=== PATIENT | female | born 1980 | race Caucasian/White ===

== ENCOUNTER 2019-10-07 16:46 | Emergency (ER) | payer OTHER, SELFPAY ==
[2019-10-07 16:56] VITALS: BP 140/99; PULSE 87; RESP 16; TEMP 37.1; O2SAT 99
--- NOTE | 2019-10-07 17:10 | ED.EYEPROB ---
HPI - Eye Problem General Chief complaint: Eye Problems Stated complaint: eye stye/coughing Time Seen by Provider: 10/07/19 17:01 Source: patient and RN notes reviewed Mode of arrival: ambulatory Limitations: no limitations History of Present Illness HPI Narrative: Patient presents today complaining of redness and swelling to the right upper eyelid since last night, worse since this morning. Reports that it feels like a grit of sand underneath her eyelid when she blinks. Denies vision change or photophobia. She is also complaining of a cough that started today. She has been sleeping with her windows open and does have seasonal allergies for which she takes fexofenadine and Singulair. She has tried no interventions for the eyelid prior to arrival. Denies shortness of breath or recent fever. Denies any other sick symptoms. Patient works at a marijuana [employer] and states she, smokes a lot of weed. She does not smoke cigarettes. MD chief complaint: other (Eyelid redness and swelling, cough) Related Data Home Medications Medication Instructions Recorded Confirmed alprazolam 10/07/19 amitriptyline 10/07/19 fexofenadine mg 10/07/19 montelukast mg 10/07/19 Allergies Allergy/AdvReac Type Severity Reaction Status Date / Time No Known Allergies Allergy Verified 02/26/17 12:54 Review of Systems Review of Systems: Narrative: CONSTITUTIONAL: Denies body aches, fever, chills, or sweats. EYES: Denies visual changes, redness, or discharge.+ Redness, swelling, and pain to the right upper eyelid ENT: Denies rhinorrhea, congestion, sore throat, or otalgia. CARDIOVASCULAR: Denies chest pain, palpitations, or edema. RESPIRATORY: Denies dyspnea.+ Cough GASTROINTESTINAL: Denies abdominal pain, nausea, vomiting, or diarrhea. GENITOURINARY: Denies dysuria or hematuria. SKIN: Denies rash, itching, or wounds. MUSCULOSKELETAL: Denies back pain, joint pain, or myalgia. NEUROLOGIC: Denies headache, numbness, tingling, or weakness. PSYCH: Denies depression or anxiety. [facility] Past Medical History Medical History (Updated 10/07/19 @ 17:22 by Sheela Valdes, [facility], ) Seasonal allergies Social History Social History (Updated 05/30/20 @ 17:22 by Sheela Valdes, [employer], ) Substance use: current Substance use type: marijuana Last use: today Comments At time of signature, I have reviewed and agree with nursing past medical, surgical, social and family history unless otherwise noted. Please see nursing chart for further information. There is no relevant family history pertinent to the presenting complaint Exam Narrative: Exam Narrative: GENERAL: Well-appearing, well-nourished, and in no acute distress. HEAD: Normocephalic, atraumatic. EYES: EOMI. PERRL. No redness or drainage of the eye. Conjunctivae normal. Right upper eyelide edema and erythema with internal nodule. Tender to palpation. ENT: Mucous membranes pink and moist. Nares clear. No rhinorrhea. Throat normal. Uvula midline. NECK: Normal AROM. Supple. No lymphadenopathy. CHEST: No respiratory distress. Clear to auscultation. HEART: Regular rate and rhythm. No murmur appreciated. Normal peripheral pulses. EXTREMITIES: Normal range of motion. No edema. SKIN: Warm, dry, no rash. Capillary refill normal. Normal skin turgor. NEURO: No focal deficits. Alert and oriented x3. Gait steady. PSYCH: Normal affect. No signs of depression or anxiety. Course Vital Signs Vital signs: Vital Signs Temperature 98.7 F 10/07/19 16:56 Pulse Rate 87 10/07/19 16:56 Respiratory Rate 16 10/07/19 16:56 Blood Pressure 140/99 H 10/07/19 16:56 Pulse Oximetry 99 10/07/19 16:56 Temperature 98.7 F 10/07/19 16:56 Pulse Rate 87 10/07/19 16:56 Respiratory Rate 16 10/07/19 16:56 Blood Pressure 140/99 H 10/07/19 16:56 Pulse Oximetry 99 10/07/19 16:56 Reviewed. Pt has been instructed to follow up with her PCP regarding her elevated bloo
== END 2019-10-07 17:21 | disposition home or self-care (01) ==
PROVIDERS: Emergency Provider Nurse Practitioner; PCP Emergency Medicine
DX: H00.021 Hordeolum internum right upper eyelid (principal)
CPT/HCPCS: 99213; G0463

== ENCOUNTER → 2019-11-14 14:25 | Outpatient (CLI) | payer OTHER, SELFPAY ==
--- NOTE | ~2019-11-14 | XR_ITS ---
XR wrist LT min 3V DATE: 11/14/2019 14:42 INDICATION: Left wrist pain. Ulnar injury. TECHNIQUE: 4 views COMPARISON: None FINDINGS: No fracture or dislocation, periosteal reaction or bone destruction. IMPRESSION: Negative Reviewed, dictated and finalized at location B. IMPRESSION: Negative
== END ==
PROVIDERS: PCP Emergency Medicine; Visit Provider Emergency Medicine
DX: S69.82XA Other specified injuries of left wrist, hand and finger(s), initial encounter (principal)
CPT/HCPCS: 73110

== ENCOUNTER 2020-04-28 11:20 | Emergency (ER) | payer OTHER, SELFPAY ==
[2020-04-28 11:34] VITALS: BP 129/73; PULSE 91; RESP 16; TEMP 37.1; O2SAT 100
--- NOTE | 2020-04-28 11:47 | ED.FALL ---
HPI - Fall General Chief Complaint: Fall Stated Complaint: fell on face Time Seen by Provider: 04/28/20 11:38 Source: patient and RN notes reviewed Mode of arrival: ambulatory Limitations: no limitations History of Present Illness HPI Narrative: 39-year-old female presents with concern for left-sided facial pain, neck pain, upper back pain. Reports just prior to arrival she fell at work, hitting her face on a concrete floor, hearing a snap . Reports immediate nausea, reports clear and bloody drainage from her nose, headache. Denies any weakness, tingling, numbness in the extremity patient was driven here by her father, did not call EMS. Denies any other intervention. MD complaint: fall Related Data Home Medications Medication Instructions Recorded Confirmed amitriptyline 10/07/19 montelukast mg 10/07/19 Allergies Allergy/AdvReac Type Severity Reaction Status Date / Time No Known Allergies Allergy Verified 02/26/17 12:54 Review of Systems Review of Systems: Narrative: CONSTITUTIONAL: Denies fever. EYES: Denies visual changes ENT: Reports clear rhinorrhea, small bloody drainage from the nose CARDIOVASCULAR: Denies chest pain, palpitations, or edema. GASTROINTESTINAL: Reports nausea SKIN: Denies lacerations, abrasions MUSCULOSKELETAL: Reports left cheek pain, swelling. Reports midline cervical spine pain NEUROLOGIC: Denies numbness, weakness. Reports headache. PSYCHIATRIC: Reports anxiety All systems reviewed & are unremarkable except as noted in HPI and below PMFSH Past Medical History Medical History (Updated 10/08/19 @ 00:00 by Elie Roberts) Seasonal allergies Social History Social History (Updated 10/07/19 @ 17:22 by Sheela Valdes, [facility], ) Substance use: current Substance use type: marijuana Last use: today Comments At time of signature, agree with nursing past medical, surgical, social and family history. There is no relevant family history pertinent to the presenting complaint Exam Narrative: Exam Narrative: GENERAL: Well-appearing, well-nourished, and in no acute distress. HEAD: Normocephalic EYES: PERRLA, conjunctivae clear ENT: Nares clear no rhinorrhea or epistaxis. NECK: Supple. CHEST: No respiratory distress. Speaks in full sentences. EXTREMITIES: Normal gait, grossly normal range of motion, grossly normal strength and sensation. SKIN: Warm, dry, no rash. Left facial swelling noted NEURO: Alert and oriented x3. PSYCH: Tearful, slightly anxious Course Course Emergency Course: Patient refusing c-collar, stating that it is causing her face to hurt worse and giving her a panic attack, patient is aware of, understands and agrees to risks of not applying c-collar. Patient understands reasons for transfer to the emergency department, including limited diagnostic capability at [facility], rule out C-spine injury. EMS transfer refused. Patient agrees to proceed directly to the emergency department, being driven by her father. Portions of this record may have been created with voice recognition software Vital Signs Vital signs: Vital Signs Temperature 98.7 F 04/28/20 11:34 Pulse Rate 91 04/28/20 11:34 Respiratory Rate 16 04/28/20 11:34 Blood Pressure 129/73 04/28/20 11:34 Pulse Oximetry 100 04/28/20 11:34 Temperature 98.7 F 04/28/20 11:34 Pulse Rate 91 04/28/20 11:34 Respiratory Rate 16 04/28/20 11:34 Blood Pressure 129/73 04/28/20 11:34 Pulse Oximetry 100 04/28/20 11:34 Reviewed. Transfer Transfered to: [place] Transportation: Other (Private vehicle, ems refused) Transfer rationale: c-spine injury r/o Accepting physician: Dr. Shipley MDM - Fall MDM Narrative Medical decision making narrative: Patient is non-toxic appearing and is in no distress. Differential Diagnosis Differential diagnosis: Likely other (facial contusion, facial fracture, c-spine injury) Critical Care Time Critical Care Time Critical Care Time: No
== END 2020-04-28 11:45 | disposition short-term general hospital (02) ==
PROVIDERS: Emergency Provider Nurse Practitioner; PCP Emergency Medicine
DX: M54.2 Cervicalgia (principal)
CPT/HCPCS: 99212; G0463; L0140

== ENCOUNTER 2020-04-28 12:00 | Emergency (ER) | payer OTHER, SELFPAY ==
--- NOTE | ~2020-04-28 | CT_ITS ---
EXAMINATION: CT facial & cervical spine wo DATE: 04/28/2020 12:46 INDICATION: Head injury. Neck pain. TECHNIQUE: Computed tomography (CT) of the maxillofacial region and cervical spine was performed with out intravenous contrast. Automated exposure control and iterative reconstruction technique were empl oyed. The dose-length product was 173.76 mGy-cm. COMPARISON: CT sinuses 09/08/2013, neck CT 06/20/2013 FINDINGS: MAXILLOFACIAL CT: Bone alignment is normal. No fracture. The paranasal sinuses are clear. The orbits are normal. There is left cheek soft tissue swelling. CERVICAL SPINE CT: There is mild scarring at the lung apices. There is kyphosis of cervical spine. Vertebral body height s and intervertebral disc heights are normal. The following disc levels are specifically discussed: C2-C3: There is no uncovertebral joint osteoarthritis. There is no facet joint osteoarthritis. There is no neural foraminal stenosis. There is no central canal stenosis. C3-C4: There is no uncovertebral joint osteoarthritis. There is no facet joint osteoarthritis. There is no neural foraminal stenosis. There is no central canal stenosis. C4-C5: There is no uncovertebral joint osteoarthritis. There is no facet joint osteoarthritis. There is no neural foraminal stenosis. There is no central canal stenosis. C5-C6: There is mild right uncovertebral joint osteoarthritis. There is no facet joint osteoarthritis . There is no neural foraminal stenosis. There is mild central canal stenosis. C6-C7: There is no uncovertebral joint osteoarthritis. There is mild right facet joint osteoarthritis . There is no neural foraminal stenosis. There is mild central canal stenosis. C7-T1: There is no uncovertebral joint osteoarthritis. There is mild bilateral facet joint osteoarthr itis. There is no neural foraminal stenosis. There is no central canal stenosis. IMPRESSION: 1. No fracture. 2. Mild cervical spondylosis. Reviewed, dictated and finalized at location A. [employer]
[2020-04-28 12:04] VITALS: BP 160/94; PULSE 79; RESP 18; TEMP 36.7; O2SAT 100
--- NOTE | 2020-04-28 12:25 | PC.NURSE ---
Pt. refused c-collar at urgent care. Pt. offered c-collar upon arrival due to neck. Pt. refused stating that when they tried to do it at the urgent care and she had a panic attack. RN educated Pt. on risk of refusing c-collar with the possibly worsening a suspected injury and having serious complications from it. Pt. understands and is refusing collar at this time.
[2020-04-28] MEDS: ACETAMINOPHEN 325 MG TABLET 650 MG PO (12:34)
--- NOTE | 2020-04-28 12:44 | ED.FALL ---
HPI - Fall General Chief Complaint: Fall <Nick Cain PA-C - Last Filed: 04/28/20 13:19> Stated Complaint: Fall, facial injury <Nick Cain PA-C - Last Filed: 04/28/20 13:19> Time Seen by Provider: 04/28/20 12:30 <Nick Cain PA-C - Last Filed: 04/28/20 13:19> Source: patient <Nick Cain PA-C - Last Filed: 04/28/20 13:19> Mode of arrival: ambulatory <Nick Cain PA-C - Last Filed: 04/28/20 13:19> Limitations: no limitations <Nick Cain PA-C - Last Filed: 04/28/20 13:19> History of Present Illness HPI Narrative: Patient is a 39-year-old female who presents after facial injury that occurred just prior to arrival patient slipped and fell struck the left side of the face where she has bruising swelling moderate aching pain patient also notes mild neck pain denies syncope loss of consciousness anticoagulant use presents per private vehicle has used ice and other adjuncts with some improvement does not appear distressed or uncomfortable on arrival <Nick Cain PA-C - Last Filed: 04/28/20 13:19> Related Data Home Medications: Home Medications Medication Instructions Recorded Confirmed amitriptyline 10/07/19 montelukast mg 10/07/19 <Nick Cain PA-C - Last Filed: 04/28/20 13:19> Allergies/Adverse Reactions: Allergies Allergy/AdvReac Type Severity Reaction Status Date / Time No Known Allergies Allergy Verified 04/28/20 12:10 <Nick Cain PA-C - Last Filed: 04/28/20 13:19> Review of Systems Review of Systems: All systems reviewed & are unremarkable except as noted in HPI and below <Nick Cain PA-C - Last Filed: 04/28/20 13:19> [facility] Past Medical History Medical History: Medical History Seasonal allergies <HENOK Dawson Last Filed: 04/28/20 13:19> Social History Social History: Social History Substance use: current Substance use type: marijuana Last use: today Gender identity (if verbalized by the patient): Female <Nick Cain PA-C - Last Filed: 04/28/20 13:19> Exam Narrative: Exam Narrative: GENERAL: Well-appearing, well-nourished, and in no acute distress. HEAD: Normocephalic, bruising swelling tenderness over the left cheek EYES: PERRLA and EOMI. ENT: Nares clear, no rhinorrhea or epistaxis. Mucous membranes moist. NECK: Supple. No adenopathy or masses. CHEST: Clear to auscultation. No respiratory distress. No wheezes rales or rhonchi HEART: Regular rate and rhythm. No murmur heard. Normal peripheral pulses. EXTREMITIES: Normal range of motion. No edema. Tenderness of the paraspinal midline cervical spine SKIN: Warm, dry, no rash. NEURO: No focal deficits. Alert and oriented x3. Cranial nerves II through XII grossly intact PSYCH: Normal mood and affect. <Nick Cain PA-C - Last Filed: 04/28/20 13:19> Course Course Emergency Course: Patient in room no distress aware of case findings treatment plan diagnosis agreeing to follow-up as instructed felt appropriate for outpatient reevaluation given the negative CT imaging <Nick Cain PA-C - Last Filed: 04/28/20 13:19> Vital Signs Vital signs: Vital Signs Temperature 98.1 F 04/28/20 12:04 Pulse Rate 79 04/28/20 12:04 Respiratory Rate 18 04/28/20 12:04 Blood Pressure 160/94 H 04/28/20 12:04 Pulse Oximetry 100 04/28/20 12:04 Temperature 98.1 F 04/28/20 12:04 Pulse Rate 79 04/28/20 12:04 Respiratory Rate 18 04/28/20 12:04 Blood Pressure 160/94 H 04/28/20 12:04 Pulse Oximetry 100 04/28/20 12:04 <Nick Cain PA-C - Last Filed: 04/28/20 13:19> Vital Signs Temperature 98.1 F 04/28/20 12:04 Pulse Rate 79 04/28/20 12:04 Respiratory Rate 18 04/28/20 12:04 Blood Pressure 160/94 H 04/28/20 12:04 Pulse Oxi
== END 2020-04-28 13:26 | disposition home or self-care (01) ==
PROVIDERS: Emergency Provider General Practice; PCP Emergency Medicine
DX: S00.83XA Contusion of other part of head, initial encounter (principal); S16.1XXA Strain of muscle, fascia and tendon at neck level, initial encounter; W01.0XXA Fall on same level from slipping, tripping and stumbling without subsequent striking against object, initial encounter
CPT/HCPCS: 70486; 72125; 99284; A9270

== ENCOUNTER 2022-03-10 09:06 | Emergency (ER) | payer OTHER, SELFPAY ==
[2022-03-10 09:24] VITALS: BP 132/84; PULSE 110; RESP 16; TEMP 37.1; O2SAT 100
--- NOTE | 2022-03-10 09:55 | ED.URI ---
HPI - URI/Sore Throat General Chief Complaint: Upper Respiratory Infection Stated Complaint: cough/fever Time Seen by Provider: 03/10/22 09:55 Source: patient, RN notes reviewed and old records reviewed Mode of arrival: ambulatory Limitations: no limitations History of Present Illness HPI Narrative: 41-year-old female presents to the [facility] with complaints of cough and fever since yesterday. Also reports being ?up all night with body aches? has taken severe Tylenol cold and flu last night. Requesting a work note for today and tomorrow. Related Data Home Medications Medication Instructions Recorded Confirmed montelukast 10 mg tablet 10 mg PO DAILY 10/07/19 03/10/22 fexofenadine 180 mg tablet 180 mg PO DAILY 03/10/22 03/10/22 (Allergy Relief (fexofenadine)) Allergies Allergy/AdvReac Type Severity Reaction Status Date / Time diazepam Allergy Mild Itching Verified 03/10/22 10:03 Review of Systems Review of Systems: All systems reviewed & are unremarkable except as noted in HPI and below Constitutional: Constitutional: Reports as per HPI, Reports chills, Reports fatigue and Denies fever(s) Eyes: Eyes: Reports no additional eye complaints ENT: Reports as per HPI Cardiovascular: Cardiovascular: Reports no additional cardiovascular complaints Respiratory: Respiratory: Reports as per HPI and Reports cough Gastrointestinal: Gastrointestinal: Reports no additional gastrointestinal complaints Musculoskeletal: Musculoskeletal: Reports no additional musculoskeletal complaints Integumentary/Breasts: Skin/Breast: Reports system reviewed and no additional complaints, except as docu Neurologic: Reports system reviewed and no additional complaints, except as documented Psychiatric: Psychiatric: Reports no additional psychiatric complaints Allergic/Immunologic: Allergic/Immunologic: Reports no additional allergic/immunologic complaints [facility] Past Medical History Medical History Bipolar 1 disorder Bulging disc Epilepsy Herpes History of recent ear, nose, and throat (ENT) procedure DNS Seasonal allergies Seizures Surgical History Surgical History Delivery by section (~06/28/10) Primary - bradycardia; mild PIH H/O gynecological procedure paragard insertion 08/22/2010 Paragard removal 12/18/2014 H/O laparoscopy - endometriosis Hx of tonsillectomy Family History Family History Mother Heart disease Hodgkin lymphoma Malignant neoplasm of liver Hypertension Father Hyperlipidemia Social History Social History Smoking status: Never smoker Alcohol intake: never Substance use: current Substance use type: marijuana Last use: today Additional occupation/education comments: [employer] Gender identity (if verbalized by the patient): Female Sexual Orientation (if Verbalized by the Patient): Straight or Heterosexual Comments At the time of my signature, I reviewed and agree with the nursing past medical, surgical, social, and family history. There is no relevant family history pertinent to the patient complaint. Exam Const: General: healthy appearing, no acute distress, alert and well nourished Nutritional Appearance: well nourished Orientation/consciousness: patient oriented x3 Limitations: no limitations HENMT: Head: normal to inspection Ears: external ears normal, TM's normal bilaterally and EAC's normal Face/Nose/Sinus: Normal external nose present and Normal nares present Face and sinus: normal facial exam Mouth: Yes Normal oral and palatal mucosa present, Yes lip normal and Yes moist mucous membranes Throat: posterior oropharynx normal and uvula midline Eyes: General: appearance normal, both eyes and all related structures Conjunctivae:
== END 2022-03-10 10:29 | disposition home or self-care (01) ==
PROVIDERS: Emergency Provider Nurse Practitioner; PCP Family Medicine
DX: J40 Bronchitis, not specified as acute or chronic (principal)
CPT/HCPCS: 87804; 99213; G0463

== ENCOUNTER 2023-03-04 09:52 | Emergency (ER) | payer BC, SELFPAY ==
--- NOTE | 2023-03-04 09:55 | ED.URI ---
HPI - URI/Sore Throat General Chief Complaint: Upper Respiratory Infection Stated Complaint: Sinus/Cough Time Seen by Provider: 03/04/23 11:07 Source: patient and RN notes reviewed Mode of arrival: ambulatory Limitations: no limitations History of Present Illness HPI Narrative: 42-year-old female presents with concern for 4 day history of cough, sinus congestion, sinus pressure. Reports trying many all for the counter and home remedies without relief. Reports her son had similar symptoms. She reports chills, sweats, body aches. She reports she took a COVID test that was negative MD elicited complaint: cough Related Data Home Medications Medication Instructions Recorded Confirmed montelukast 10 mg tablet 10 mg PO DAILY 10/07/19 03/04/23 fexofenadine 180 mg tablet 180 mg PO DAILY 03/10/22 03/04/23 (Allergy Relief (fexofenadine)) alprazolam 0.25 mg tablet 0.25 mg PO DAILY 01/13/23 03/04/23 Allergies Allergy/AdvReac Type Severity Reaction Status Date / Time No Known Allergies Allergy Verified 03/04/23 10:26 Review of Systems Review of Systems: CONSTITUTIONAL: Reports malaise, chills, sweats EYES: Denies visual changes, redness, or discharge. ENT: Reports rhinorrhea, congestion, sinus pain CARDIOVASCULAR: Denies chest pain, palpitations, or edema. RESPIRATORY: Reports cough and chest congestion. Denies dyspnea. GASTROINTESTINAL: Denies abdominal pain, nausea, vomiting, diarrhea SKIN: Denies rash or itching. MUSCULOSKELETAL: Reports myalgia. NEUROLOGIC: Reports headache. All systems reviewed & are unremarkable except as noted in HPI and below PMFSH Past Medical History Medical History Bipolar 1 disorder Bulging disc Epilepsy Herpes History of recent ear, nose, and throat (ENT) procedure DNS Seasonal allergies Seizures Surgical History Surgical History Delivery by section (~06/28/10) Primary - bradycardia; mild PIH H/O gynecological procedure paragard insertion 08/22/2010 Paragard removal 12/18/2014 H/O laparoscopy - endometriosis Hx of tonsillectomy Family History Family History Mother Heart disease Hodgkin lymphoma Malignant neoplasm of liver Hypertension Father Hyperlipidemia Social History Social History (Updated 01/13/23 @ 09:30 by Keely Perez MA) Smoking status: Never smoker Alcohol intake: never Substance use: current Substance use type: marijuana Last use: today Lack of Transportation: No Lack of Food: Never True Current Housing: I Have Housing Concerned About Future Housing: No Difficulty Paying Gas/Electric Bills: No Difficulty Paying for Meds: No Currently Unemployed: No Education: High School Diploma/GED Difficulty w/ Childcare or Family Care: No Living arrangements: alone Occupation/Education: occupation Additional occupation/education comments: [employer] Gender identity (if verbalized by the patient): Female Sexual Orientation (if Verbalized by the Patient): Straight or Heterosexual Comments At time of signature, agree with nursing past medical, surgical, social and family history. There is no relevant family history pertinent to the presenting complaint Exam Narrative: GENERAL: Well-appearing, well-nourished, and in no acute distress. HEAD: Normocephalic EYES: PERRLA, conjunctivae clear ENT: Nares clear, turbinates edematous and erythematous, clear discharge. Mucous membranes moist. TM pearly solis with dull light reflex bilaterally; no tragal tenderness. Oropharynx not erythematous without lesions. Tonsils not enlarged and without exudate, no drooling, no hoarseness, no trismus, uvula midline. NECK: Supple. No lymphadenopathy CHEST: Clear to auscultation, breath sounds equal. No wheezing, rhonchi, rales, or stridor. No respiratory distress, spea
[2023-03-04 10:07] VITALS: BP 136/84; PULSE 70; RESP 16; TEMP 37.1; O2SAT 100
== END 2023-03-04 11:16 | disposition home or self-care (01) ==
PROVIDERS: Emergency Provider Nurse Practitioner; PCP Family Medicine
DX: J40 Bronchitis, not specified as acute or chronic (principal); F12.90 Cannabis use, unspecified, uncomplicated
CPT/HCPCS: 99213; G0463

== ENCOUNTER 2024-07-09 14:46 | Emergency (ER) | payer BC, SELFPAY ==
[2024-07-09 14:56] VITALS: BP 152/91; PULSE 88; RESP 14; TEMP 37.2; O2SAT 100
--- NOTE | 2024-07-09 14:58 | ED.EAR ---
HPI - Ear Problem General Chief complaint: Upper Respiratory Infection Stated complaint: Right Ear Irritation Time Seen by Provider: 07/09/24 14:59 Source: patient, RN notes reviewed and old records reviewed Mode of arrival: ambulatory Limitations: no limitations History of Present Illness HPI Narrative: Patient presents with complaints of right ear pain and right sinus congestion. She reports that she was in her normal state of health until about 3 weeks ago. States she came down with influenza, recovered, but has had sinus pain and pressure since. Ear pain began a few days ago and is worsening. She denies any injury or trauma. She has been taking multiple vitamins to try to help her health status. No other concerns or complaints Related Data Home Medications ?Medication ?Instructions ?Recorded ?Confirmed ?Last Taken ?Type montelukast 10 mg tablet 10 mg PO DAILY 10/07/19 03/04/23 Unknown History alprazolam 0.25 mg tablet 0.25 mg PO DAILY 01/13/23 03/04/23 Unknown History atorvastatin 10 mg tablet mg 07/09/24 Unknown History Allergies Allergy/AdvReac Type Severity Reaction Status Date / Time No Known Allergies Allergy Verified 07/09/24 14:48 Review of Systems Review of Systems: All systems reviewed & are unremarkable except as noted in HPI and below Constitutional: Constitutional: Reports no additional constitutional complaints ENT: Reports system reviewed and no additional complaints, except as documented, Reports otalgia, Reports nasal congestion, Reports nasal discharge, Reports sinus pain and Reports sinus pressure Cardiovascular: Cardiovascular: Reports no additional cardiovascular complaints Respiratory: Respiratory: Reports no additional respiratory complaints Gastrointestinal: Gastrointestinal: Reports no additional gastrointestinal complaints PMFSH Past Medical History Medical History History of recent ear, nose, and throat (ENT) procedure DNS Bulging disc Bipolar 1 disorder Epilepsy Seizures Herpes Seasonal allergies Surgical History Surgical History H/O gynecological procedure paragard insertion 08/22/2010 Paragard removal 12/18/2014 H/O laparoscopy - endometriosis Hx of tonsillectomy Delivery by section (~06/28/10) Primary - bradycardia; mild PIH Family History Family History Mother Heart disease Hodgkin lymphoma Malignant neoplasm of liver Hypertension Father Hyperlipidemia Social History Social History Smoking status: Never smoker Alcohol intake: never Substance use: current Substance use type: marijuana Last use: today Lack of Transportation: No Lack of Food: Never True Current Housing: I Have Housing Concerned About Future Housing: No Difficulty Paying Gas/Electric Bills: No Difficulty Paying for Meds: No Currently Unemployed: No Education: High School Diploma/GED Difficulty w/ Childcare or Family Care: No Living arrangements: alone Occupation/Education: occupation Additional occupation/education comments: [employer] Gender identity (if verbalized by the patient): Female Sexual Orientation (if Verbalized by the Patient): Straight or Heterosexual Comments At the time of my signature, I reviewed and agree with the nursing past medical, surgical, social, and family history. There is no relevant family history pertinent to the patient complaint. Exam Const: General: cooperative, no acute distress, alert and awake Orientation/consciousness: oriented to person, oriented to place and oriented to time HENMT: Head: normal to inspection Ears: TM abnormal bulging on the right, erythematous on the right and with loss of landmarks on the right Resp: Effort & Inspection: normal respiratory effort and able to speak in complete sentences Auscultation: clear to auscultation bilaterally, no crackles, no rales, no rhonchi and no wheezes Cardio: Palpation: normal PMI Rate: regular rate Rhythm: regular rhythm Heart sounds: S1 normal heart sound present and S2 normal heart sound present Neuro: General: oriented to person, oriented to place and oriented to time Cranial nerves: Yes CN's II-XII intact bilaterally Psych: Appearance: grossly normal Thought process: Normal thought process present Insight: Good insight present (Psych) Judgement: Good judgement present (Psych) Course Course Emergency Course: History and exam consistent with otitis media. Start p.o. antibiotic therapy, prednisone burst. Patient nontoxic appearing, stable for discharge home. Level of Care: Express Care Visit Vital Signs Vital signs: Vital Signs Temperature 98.9 F 07/09/24 14:56 Pulse Rate 88 07/09/24 14:56 Respiratory Rate 14 07/09/24 14:56 Blood Pressure 152/91 H 07/09/24 14:56 Pulse Oximetry 100 07/09/24 14:56 Oxygen Delivery Room Air 07/09/24 14:56 Temperature 98.9 F 07/09/24 14:56 Pulse Rate 88 07/09/24 14:56 Respiratory Rate 14 07/09/24 14:56 Blood Pressure 152/91 H 07/09/24 14:56 Pulse Oximetry 100 07/09/24 14:56 Oxygen Delivery Room Air 07/09/24 14:56 Reviewed Medical Decision Making MDM Narrative Medical decision making narrative: History and exam consistent with otitis media. Start p.o. antibiotic therapy, prednisone burst. Patient nontoxic appearing, stable for discharge home Discharge instructions reviewed with patient, as well as provided in writing per nursing staff. The instructions also include specific and strict return/GO TO THE ER as well as f/u information. All questions have been answered, and the patient deny any further questions with discharge and discharge plan. Some parts of this dictation were generated by voice recognition software and may contain typographical and/or grammatical inaccuracies. Differential Diagnosis Differential Diagnosis: Otalgia, sinusitis, viral illness Medical Records Medical records reviewed: Yes I reviewed the external patient's medical records. Vital Signs Vital Signs: Vital Signs Temperature 98.9 F 07/09/24 14:56 Pulse Rate 88 07/09/24 14:56 Respiratory Rate 14 07/09/24 14:56 Blood Pressure 152/91 H 07/09/24 14:56 Pulse Oximetry 100 07/09/24 14:56 Oxygen Delivery Room Air 07/09/24 14:56 Temperature 98.9 F 07/09/24 14:56 Pulse Rate 88 07/09/24 14:56 Respiratory Rate 14 07/09/24 14:56 Blood Pressure 152/91 H 07/09/24 14:56 Pulse Oximetry 100 07/09/24 14:56 Oxygen Delivery Room Air 07/09/24 14:56 reviewed Lab Data Lab results reviewed: Yes I reviewed the patient's lab results. Lab results narrative: reviewed Discharge Plan Discharge Clinical Impression: Elevated blood pressure reading Otitis media Qualifiers: Otitis media type: suppurative Chronicity: acute Laterality: right Recurrence: not specified as recurrent Spontaneous tympanic membrane rupture: without spontaneous rupture Qualified Code(s): H66.001 - Acute suppurative otitis media without spontaneous rupture of ear drum, right ear Patient Disposition: Home, Self-Care Condition: Stable Instructions: Antibiotic Form, Earache (ED) Additional Instructions: Take medications as prescribed. Follow with primary care provider. Emergency department for new or worse symptoms Patient Language: Ukrainian Prescriptions: New amoxicillin-pot clavulanate 875-125 mg tablet 1 tablet PO Q12H Qty: 20 0RF prednisone 50 mg tablet 50 mg PO DAILY Qty: 5 0RF No Action atorvastatin 10 mg tablet montelukast 10 mg tablet 10 mg PO DAILY alprazolam 0.25 mg tablet 0.25 mg PO DAILY Follow-up/Referrals: Cookie,MD Pato [Primary Care Provider] - 2 Weeks
== END 2024-07-09 15:15 | disposition home or self-care (01) ==
PROVIDERS: Emergency Provider Nurse Practitioner Family; PCP Family Medicine
DX: R03.0 Elevated blood-pressure reading, without diagnosis of hypertension (principal); H66.001 Acute suppurative otitis media without spontaneous rupture of ear drum, right ear; F12.90 Cannabis use, unspecified, uncomplicated
CPT/HCPCS: 99213; G0463

== ENCOUNTER 2025-02-20 16:40 | Outpatient (CLI) | payer OTHER, SELFPAY ==
--- OUTSIDE RECORDS SUMMARY | 2025-02-20 17:38 | XMS_ITS | Clinical Summary ---
Author Organization [facility] [address] [facility] Address [address] [place] [address] Care Team Providers Care Plumber Assistant Name Role Phone Pato Gary MD Primary Care Provider [phone] Coco Jones MD Unavailable [phone] Allergies Active Allergy Reactions Criticality Noted Date Comments Doxepin Rash Medium 08/19/2020 Medications cetirizine (ZyrTEC) 10 mg tabletIndicatio ns:Seasonal allergies Take 1 tablet (10 mg total) by mouth daily as needed for allergies 90 tablet 3 5 10/13/19 26 Active fluticasone propionate (FLONASE) 50 mcg/actuation nasal sprayIndication s:Seasonal allergies Administer 2 sprays into each nostril daily 1 each 5 5 04/10/20 25 Active ALPRAZolam (XANAX) 0.25 mg tabletIndicatio ns:TAWNY (generalized anxiety disorder) Take 1 tablet (0.25 mg total) by mouth 2 (two) times a day as needed for anxiety 60 tablet 5 5 04/10/20 25 Active Active Problems Problem Noted Date Diagnosed Date Chronic right shoulder pain 05/12/2023 Panic disorder without agoraphobia 09/04/2022 Menorrhagia 05/05/2021 TAWNY (generalized anxiety disorder) 08/19/2020 Moderate episode of recurrent major depressive d isorder 08/19/2020 Irritable bowel syndrome with diarrhea Seasonal allergies 08/19/2020 Immunizations Immunization Administration Dates Next Due Influenza, Quadrivalent, Spl it, Preservative Free, Intramuscular 03/10/2018 Influenza, Unspecified 03/14/2024(Deferr ed: Patient decision),03/17/2023(Deferred: Patient decision),01/08/2022(Deferred: Patient decision) Surgical History Surgery Date Site/Laterality Comments SECTION NOSE SURGERY deviated septum SHOULDER SURGERY bone spur removal Medical History Medical History Date Comments Allergic Anxiety Panic disorder Depression IBS (irritable bowel syndrome) Arthritis 2017 Menstrual problem 1998 Right shoulder pain Family History Medical History Relation Name Comments Alcohol abuse Father Tony Mumper Allergy (severe) Father Tony Mumper Arthritis Father Tony Mumper Heart disease Father Tony Mumper Hyperlipidemia Father Tony Mumper Hypertension Father Tony Mumper Rashes / Skin problems Father Tony Mumper Skin cancer Father Tony Mumper psoriatic arthritis Father Tony Mumper Arthritis Maternal Grandmother Ludy Doss Blindness Maternal Grandmother Ludy Doss Cancer Maternal Grandmother Ludy Doss Crohn's disease Maternal Grandmother Ludy Doss Hearing loss Maternal Grandmother Ludy Doss Vision loss Maternal Grandmother Ludy Doss Alcohol abuse Mother Blanca Mumper Cancer Mother Blanca Mumper Depression Mother Blanca Mumper Heart disease Mother Blanca Mumper Hodgkin's lymphoma Mother Blanca Mumper Liver cancer Mother Blanca Mumper Cancer Paternal Grandmother Salima Colon cancer Paternal Grandmother Salima No Known Problems Son Relation Name Status Comments Father Tony Mumper Alive Maternal Grandfather Maternal Grandmother Ludy Doss Mother Blanca Mumper Paternal Grandfather Alive Paternal Grandmother Aslima Son Alive Social History Tobacco Use Types Packs/Day Years Used Date Smoking Tobacco: Former Cigarettes 0.5 15 0 05/10/1994 - 2009 Smokeless Tobacco: Never Tobacco Cessation:Counseling Given: Not Answered Comments:I quit many years ago AUDIT-C Answer Date Recorded Q1: How often do you have a drink containing alc ohol? Monthly or less 10/12/2024 Q2: How many drinks containi ng alcohol do you have on a typical day when you are drinking? 1 or 2 10/12/2024 Q3: How often do you have si x or more drinks on one occasion? Less than monthly 10/12/2024 PHQ-2 Answer Date Recorded PHQ-2 Total Score (If total score is 3 or more points, staff should administer the PHQ-9) 0 07/12/2024 PHQ-9 Answer Date Recorded PHQ-9 Total Score 0 07/12/2024 Personal Safety Answer Date Recorded Getting School Help Needed Denies 04/27 Comments No Sex and Gender Information Value Date Recorded Sex Assigned at Not on file Legal Sex Female 5:35 AM WEAVE DEFECT CHARTING CLERK Gender Identity Not on file Sexual Orientation Not on file Obstetrics History Para Term AB IAB SAB Ectopic Multiple Livin g Live Births 1 1 1 Date Outcome GA Total Labor Labor/2nd/3rd Weight Sex Type Anes PTL Adilene A1 A5 Name Clin Term Last Filed Vital Signs Vital Sign Reading Time Taken Comments Blood Pressure 120/74 10/12/2024 2:14 PM CDT Pulse 62 10/12/2024 2:14 PM CDT Temperature 36.6 C (97.8 F) 10/12/2024 2:14 PM CDT Respiratory Rate 18 10/12/2024 2:14 PM CDT Oxygen Saturation 98% 10/12/2024 2:14 PM CDT Inhaled Oxygen Concentration - - Weight 65.7 kg (144 lb 12.8 oz) 10/12/2024 2:14 PM CDT Height 165.1 cm (5' 5) 10/12/2024 2:14 PM CDT Body Mass Index 24.1 10/12/2024 2:14 PM CDT Plan of Treatment Health Maintenance Due Date Last Done Comments Cervical Cancer Screening 1981 DTaP/Tdap/Td Vaccine (1 - Tdap) 1992 Varicella Vaccines (1 of 2 - 13+ 2-dose series) 1994 Hepatitis B Screening 10/10/1999 HPV Vaccines (1 - 3-dose SCDM series) 2008 Breast Cancer Screening-Mammogram 07/06/2023 07/06/2022, 01/06/2021 Influenza Vaccine (#1) 2025 03/10/2018 Depression Screening 07/12/2025 07/12/2024, 07/12/2024, 12/09/2022, Additional history exists Regular Well Visit/Exam 18-64 07/12/2025 07/12/2024, 03/17/2023 Hepatitis C Screening Completed 08/02/2023 Pneumococcal vaccine <65 Aged Out No longer eligible based on patient's age to complete this topic Procedures Procedure Name Priority Date/Time Associated Diagnosis Comments HEPATITIS PANEL, ACUTE Routine 08/02/2023 5:58 PM CDT Hepatomegaly SCREENING MAMMOGRAM BILATERAL W JUAN Schedule Routine, Read Routine (OP Routine) 07/06/2022 11:32 AM WEAVE DEFECT CHARTING CLERK Screening mammogram, encounter for from Last 3 Months or Most Recently Relevant to Health Maintenance Results * Hepatitis panel, acute Blood (08/02/2023 5:58 PM CDT) Hep A IgM Nonreactive Nonreactive Comment: Interpretive Data: If Hep A IgM Ab is reported as Equivocal, a new sample should be drawn in two weeks for testing. Current interpretive data was last revised on 19. Hep B core IgM Nonreactive Nonreactive ANDREW Comment: Interpretive Data If HepB Core IgM Ab is reported as Equivocal, a new sample should be drawn in two weeks for testing. Current interpretive data was last revised on 19. Hep C Ab Nonreactive Nonreactive ANDREW Comment: Antibodies to HCV not detected. Does NOT exclude the possibility of recent exposure to HCV. Current interpretive data was last revised on 22 Interpretive Data Nonreactive: Antibodies to HCV not detected. Does NOT exclude the possibility of recent exposure to HCV. Equivocal: Equivocal for HCV antibodies. Supplemental molecular testing will be automatically performed to determine infection status in accordance with current CDC screening recommendations. Reactive: Positive for HCV antibodies. This may represent current or past HCV infection. Supplemental molecular testing will be automatically performed to determine current infection status in accordance with current CDC screening recommendations. Interpretive data was last revised on 2019. HepBsAg Nonreactive Nonreactive ANDREW Blood 08/02/2023 5:58 PM CDT 08/02/2023 8:11 PM CDT us Pato Gary MD LAB MICROBIOLOGY - GENERAL ORDER ROMIE Final Result ANDREW [address] [facility] Department [place] [address] * Screening Mammogram Bilateral W Juan (07/06/2022 11:32 AM WEAVE DEFECT CHARTING CLERK) Anatomical Region Laterality Modality Breast Bilateral Mammography Impressions 07/06/2022 11:38 AM WEAVE DEFECT CHARTING CLERK BI-RADS ATLAS category (overall): 1 - Negative There is no mammographic evidence of malignancy. A 1 year screening mammogram is recommended. The patient has been or will be contacted. We recommend annual screening mammography for women at average risk of breast cancer beginning at age 40, based on guidelines of the [place] [employer] (ACR Practice Parameter for the Performance of Screening and Diagnostic Mammography) and [place] [employer]. For women with and elevated risk of breast cancer, please refer to the ACR Practice Parameter for specific screening recommendations. The patient will be entered into a reminder system with a target due date of 1 year for her next screening exam. Narrative 07/06/2022 11:38 AM WEAVE DEFECT CHARTING CLERK Screening Mammogram Bilateral W Juan: 07/06/22 The study was acquired using full field digital technology and interpreted from soft copy. 2D digital mammographic views, as well as 3D digital tomosynthesis were performed in the CC and MLO projections. CLINICAL: Screening mammogram, encounter for. No relevant medical history has been documented for this patient. No known family history of breast cancer. COMPARISONS: 01/06/2021 Diagnostic Mammogram Bilateral W Juan 01/06/2021 US Breast Left Limited BREAST TISSUE: The breasts are heterogeneously dense, which may obscure small masses. FINDINGS: No suspicious masses, suspicious calcifications, or other suspicious findings are seen within either breast. There has been no suspicious change. us Self Screening Mammogram IMG MAMMO PROCEDURES Fi nal Result from Last 3 Months or Most Recently Relevant to Health Maintenance Insurance [facility] Care Teams Plumber Assistant Relationship Specialty Start Date End Date Pato Gary MD [address] [place] [address] PCP - General Family Medicine 12/09/22 Coco Jones MD [address] [place] [address] Consulting Physician Gastroenterology 09/28/23
--- OUTSIDE RECORDS SUMMARY | 2025-02-20 17:38 | XMS_ITS | Clinical Summary ---
Author Organization [facility] Address [address] [place] [address] Care Team Providers Care Bending Press Operator Name Role Phone Unavailable Primary Care Provider Unavailabl e Source Comments [facility],non-owned Affiliates and Associated Physician Practices is amultiple site organization consisting of ambulatory clinics and hospital sitesin [place], [place], [place] and [place]. This disclosure is being madepursuant to the Care Everywhere program and may not contain all information available regarding this patient. Last updated 18.[facility] Social History Tobacco Use Types Packs/Day Years Used Date Smoking Tobacco: Some Days Alcohol Use Standard Drinks/Week Comments Yes 0 (1 standard drink = 0.6 oz pur e alcohol) Comments Unknown Sex and Gender Information Value Date Recorded Sex Assigned at Not on file Legal Sex Female 6:53 PM TELEPHONIC NURSE Gender Identity Not on file Sexual Orientation Not on file Plan of Treatment Health Maintenance Due Date Last Done Comments LIPID TESTING 1981 MAMMOGRAM 1981 HIV SCREENING 1996 HEPATITIS C SCREENING 10/05/1999 DTAP/TDAP/TD VACCINES (1 - Tdap) 2000 HEPATITIS B VACCINE (1 of 3 - 19+ 3-dose series) 2000 HPV VACCINE (1 - 3-dose SCDM series) 2008 DEPRESSION SCREENING 05/10/2024 COVID-19 VACCINE (1 - 2023-2 5 season) 2025 INFLUENZA VACCINE (#1) 2025 ZOSTER VACCINE (1 of 2) 10/10/2031 HIB VACCINE Aged Out No longer eligi ble based on patient's age to complete this topic MENINGOCOCCAL (Group B) VACC INE SHARED DECISION-MAKING Aged Out No longer eligibl e based on patient's age to complete this topic MENINGOCOCCAL GROUPS A/C/Y/W VACCINE Aged Out No longer eligible b ased on patient's age to complete this topic PNEUMOCOCCAL VACCINE Aged Out No long er eligible based on patient's age to complete this topic
--- OUTSIDE RECORDS SUMMARY | 2025-02-20 17:38 | XMS_ITS | Clinical Summary ---
Author Organization [facility] Address [address] [place] [address] Care Team Providers Care Track Repair Worker Name Role Phone Ady Rosario MD Primary Care Provider Allergies No known active allergies Medications magnesium oxide 400 (241.3 Mg) MG tabletIndicatio ns:400-800 daily Take 400 mg by mouth daily. Indications: 400-800 daily Active omega-3 fatty acid 500 MG capsule Take 1,200 mg by mouth daily. Active Misc Natural Products (TURMERIC CURCUMIN) capsule Take 1 capsule by mouth daily. Active wheat dextrin Tab tablet Take 1 tablet by mouth daily. Active polycarbophil (FIBER) 625 MG tablet Take 500 mg by mouth daily. Active Social History Tobacco Use Types Packs/Day Years Used Date Smoking Tobacco: Former Cigarettes Q uit: 02/07/2010 Smokeless Tobacco: Never Comments No Sex and Gender Information Value Date Recorded Sex Assigned at Not on file Legal Sex Female 7:30 PM CDT Gender Identity Not on file Sexual Orientation Not on file Last Filed Vital Signs Vital Sign Reading Time Taken Comments Blood Pressure 120/75 02/07/2019 2:45 PM CDT Pulse 81 02/07/2019 2:45 PM CDT Temperature 36.4 C (97.5 F) 02/07/2019 2:35 PM CDT Respiratory Rate 18 02/07/2019 2:45 PM CDT Oxygen Saturation 99% 02/07/2019 2:45 PM CDT Inhaled Oxygen Concentration - - Weight 61.2 kg (135 lb) 02/06/2019 10:06 AM CDT Height 165.1 cm (5' 5) 02/06/2019 10:06 AM CDT Body Mass Index 22.47 02/06/2019 10:06 AM CDT Plan of Treatment Health Maintenance Due Date Last Done Comments Cervical Cancer Screening Pa p Smear (Age 30 to 64) Every 3 Years 1981 Annual Physical 1984 Hepatitis C 10/10/1999 DTaP, Tdap and Td Vaccines ( 1 - Tdap) 2000 Hepatitis B Vaccines (1 of 3 - 19+ 3-dose series) 2000 HPV Vaccines (1 - 3-dose SCD M series) 2008 Cervical Cancer Screening Pa p with HPV Testing (Age 30 to 64) Every 5 Years 10/10/2011 Cervical Cancer Screening with HPV 10/10/2011 Mammogram Screening 2021 COVID-19 Vaccine ( - 2023-2 5 season) 2025 Influenza Adult (#1) 2025 03/10/2018 Meningococcal B Vaccine Aged Out No l onger eligible based on patient's age to complete this topic Meningococcal Vaccine Aged Out No keith leandra eligible based on patient's age to complete this topic Pneumococcal Vaccine: Pediat rics (0 to 5 Years) and At-Risk Patients (6 to 49 Years) Aged Out No longer eligi ble based on patient's age to complete this topic RSV Immunizations Under 20 Months Aged Out No longer eligible based on patient's age to complete this topic Insurance [employer] Care Teams Track Repair Worker Relationship Specialty Start Date End Date Ady Rosario MD [address] [phone] PCP - General FAMILY PRACTICE 02/03/19
[2025-02-20 17:43] LABS: Beta HCG Quantitative < 2.39 mIU/ML
== END 2025-02-20 16:41 | disposition home or self-care (01) ==
LOC: ANHLAB 16:46
PROVIDERS: PCP Family Medicine; Visit Provider Obstetrics & Gynecology
DX: N91.2 Amenorrhea, unspecified (principal)
CPT/HCPCS: 36415; 84702